=== PATIENT | male | born 1975 | race Hispanic/Latino ===

== ENCOUNTER 2024-03-03 15:08 | Inpatient (IN) | payer MEDICARE ==
[~2024-03-03] VITALS: Ht 172.7 cm; Wt 83.9 kg
[2024-03-03 16:17] LABS: BASOPHILS # (AUTO) 0.1 (0.0-0.1); BASOPHILS % 0.7 % (0.0-1.0); EOSINOPHILS # (AUTO) 0.4 (0.0-0.4); EOSINOPHILS % 3.2 % (0.0-6.0); HEMATOCRIT 48.9 % (38.2-49.6); HEMOGLOBIN 14.9 g/dL (14.0-18.0); LYMPHOCYTES % 27.7 % (18.0-39.1); MEAN CORPUSCULAR HEMOGLOBIN 27.6 pg (28-32); MEAN CORPUSCULAR HGB CONC 30.5 g/dL (31-35); MEAN CORPUSCULAR VOLUME 90.6 fL (81-99); MONOCYTES # (AUTO) 0.6 (0.2-0.8); MONOCYTES % 5.5 % (4.4-11.3); NEUTROPHILS # (AUTO) 6.8 (2.1-6.9); NEUTROPHILS % 62.4 % (38.7-80.0); PLATELET COUNT 347 x10e3/uL (140-360); RED CELL DISTRIBUTION WIDTH 14.6 % (11.7-14.4); WHITE BLOOD COUNT 10.81 x10e3/uL (4.8-10.8)
[2024-03-03 16:33] LABS: BACTERIA,URINE RARE /HPF; BILIRUBIN,URINE NEGATIVE (NEGATIVE); CLARITY,URINE CLEAR (CLEAR); COLOR,URINE YELLOW (YELLOW); EPITHELIAL CELLS,URINE RARE /LPF; GLUCOSE, URINE NEGATIVE (NEGATIVE); KETONES,URINE NEGATIVE (NEGATIVE); LEUKOCYTE ESTERASE ,URINE NEGATIVE (NEGATIVE); NITRITE,URINE NEGATIVE (NEGATIVE); PH,URINE 7 (5 - 7); PROTEIN,URINE DIPSTICK NEGATIVE (NEGATIVE); URINE UROBILINOGEN 0.2 mg/dL (0.2 - 1)
[2024-03-03] MEDS: SODIUM CHLORIDE 0.9% 1000ML 1,000 ML IV STA (16:36)
[2024-03-03] MEDS: KETOROLAC TROMETHAMINE 30 MG/ML VIAL IV STA (16:37)
[2024-03-03] MEDS: DICYCLOMINE HCL 20 MG/2 ML VIAL IM ONE (16:37)
[2024-03-03 17:13] LABS: ALBUMIN 3.7 g/dL (3.5-5.0); ALBUMIN/GLOBULIN RATIO 0.9 (0.8-2.0); ANION GAP 15.8 mmol/L (8-16); BILIRUBIN,TOTAL 0.4 mg/dL (0.2-1.2); CALCIUM 10.2 mg/dL (8.4-10.2); CREATININE, SERUM 0.83 mg/dL (0.72-1.25); POTASSIUM 3.8 mmol/L (3.5-5.1)
[2024-03-03] MEDS ORDERED: IOPAMIDOL 370 MG/ML 100 ML INFUS..BTL INJ ONE (17:20)
[2024-03-03 19:03] VITALS: PULSE 76; RESP 16; TEMP 97.8
[2024-03-03] MEDS: SODIUM CHLORIDE 0.9% 1000ML 1,000 ML IV SCH (19:52)
[2024-03-03] MEDS: METRONIDAZOLE 500MG/NS 100ML 100 ML IV SCH (19:57)
[2024-03-03 20:15] VITALS: PULSE 75; RESP 16; O2SAT 98
[2024-03-03 21:00] VITALS: BP 131/86; PULSE 73; RESP 18; TEMP 98.8; O2SAT 99
[2024-03-03] MEDS: Morphine 4mg INJECTION 4 MG/ML INJ IV PRN (22:05)
[2024-03-03 23:21] VITALS: BP 131/86; PULSE 73; RESP 18; TEMP 98.8; O2SAT 99
[2024-03-03 23:58] VITALS: BP 131/86; PULSE 73; RESP 18; TEMP 98.8; O2SAT 99
[2024-03-04] VITALS (9 sets, daily range): BP systolic 108–167; BP diastolic 67–85; PULSE 69–84; RESP 16–18; TEMP 97.6–99; O2SAT 96–100
[2024-03-04] MEDS ORDERED: METFORMIN HCL500 MG PO (00:49)
[2024-03-04 06:26] LABS: BASOPHILS # (AUTO) 0.1 (0.0-0.1); BASOPHILS % 0.9 % (0.0-1.0); EOSINOPHILS # (AUTO) 0.5 (0.0-0.4); EOSINOPHILS % 4.2 % (0.0-6.0); HEMATOCRIT 42.5 % (38.2-49.6); HEMOGLOBIN 13.4 g/dL (14.0-18.0); LYMPHOCYTES # (AUTO) 3.1 (1.0-3.2); LYMPHOCYTES % 27.8 % (18.0-39.1); MEAN CORPUSCULAR HEMOGLOBIN 27.4 pg (28-32); MEAN CORPUSCULAR HGB CONC 31.5 g/dL (31-35); MEAN CORPUSCULAR VOLUME 86.9 fL (81-99); MONOCYTES # (AUTO) 0.7 (0.2-0.8); MONOCYTES % 6.6 % (4.4-11.3); NEUTROPHILS # (AUTO) 6.6 (2.1-6.9); PLATELET COUNT 329 x10e3/uL (140-360); RED BLOOD COUNT 4.89 x10e6/uL (4.3-5.7); RED CELL DISTRIBUTION WIDTH 14.6 % (11.7-14.4); WHITE BLOOD COUNT 10.98 x10e3/uL (4.8-10.8)
[2024-03-04 06:51] LABS: ALBUMIN 3.1 g/dL (3.5-5.0); ALBUMIN/GLOBULIN RATIO 0.9 (0.8-2.0); BILIRUBIN,TOTAL 0.6 mg/dL (0.2-1.2); CALCIUM 9.6 mg/dL (8.4-10.2); CREATININE, SERUM 0.89 mg/dL (0.72-1.25); TOTAL PROTEIN 6.7 g/dL (6.5-8.1)
[2024-03-04] MEDS: ONDANSETRON HCL INJ 2MG/ML 2ML 2 MG/ML VIAL IV PRN (07:42)
[2024-03-04] MEDS: INFLUENZA VIRUS VAC SPLIT INJ 0.5 ML SYR IM SCH (07:50)
[2024-03-04] MEDS ORDERED: DEXTROSE 50% SYRINGE 50 ML IV PRN (14:45)
[2024-03-04] MEDS: INSULIN LISPRO 100 UNIT/1 ML 3ML VIAL SQ SCH (16:04)
[2024-03-04] MEDS: ACETAMINOPHEN 1000 MG/100 ML IV PRN (17:56)
[2024-03-05] VITALS (7 sets, daily range): BP systolic 109–128; BP diastolic 68–86; PULSE 63–88; RESP 16–18; TEMP 97.7–98.7; O2SAT 93–100
[2024-03-05] MEDS ORDERED: ERYTHROMYCIN 500 MG TAB PO SCH (07:15)
[2024-03-05] MEDS ORDERED: BISACODYL 10 MG SUPP PR ONE (11:00)
[2024-03-05] MEDS: CITRATE OF MAGNESIA 300ML BOTTLE PO ONE (11:40)
[2024-03-05] MEDS: NEOMYCIN SULFATE 500 MG TAB PO SCH (12:20)
[2024-03-05] MEDS: ERYTHROMYCIN 500 MG TAB PO SCH (12:20)
[2024-03-05 14:41] LABS: BASOPHILS # (AUTO) 0.1 (0.0-0.1); BASOPHILS % 0.9 % (0.0-1.0); EOSINOPHILS # (AUTO) 0.5 (0.0-0.4); EOSINOPHILS % 8.3 % (0.0-6.0); HEMATOCRIT 49.2 % (38.2-49.6); HEMOGLOBIN 14.4 g/dL (14.0-18.0); LYMPHOCYTES # (AUTO) 1.6 (1.0-3.2); LYMPHOCYTES % 24.8 % (18.0-39.1); MEAN CORPUSCULAR HEMOGLOBIN 27.3 pg (28-32); MEAN CORPUSCULAR HGB CONC 29.3 g/dL (31-35); MONOCYTES # (AUTO) 0.4 (0.2-0.8); MONOCYTES % 6.1 % (4.4-11.3); NEUTROPHILS # (AUTO) 3.8 (2.1-6.9); NEUTROPHILS % 59.3 % (38.7-80.0); PLATELET COUNT 318 x10e3/uL (140-360); RED BLOOD COUNT 5.28 x10e6/uL (4.3-5.7); RED CELL DISTRIBUTION WIDTH 14.6 % (11.7-14.4); WHITE BLOOD COUNT 6.37 x10e3/uL (4.8-10.8)
[2024-03-05 14:52] LABS: MEAN CORPUSCULAR VOLUME 93.2 fL (81-99)
[2024-03-05 14:56] LABS: ANION GAP 15.9 mmol/L (8-16); CALCIUM 10.2 mg/dL (8.4-10.2); CREATININE, SERUM 1.03 mg/dL (0.72-1.25); POTASSIUM 3.9 mmol/L (3.5-5.1)
[2024-03-05] MEDS ORDERED: ACETAMINOPHEN 325 MG TAB PO PRN (16:30)
[2024-03-05] MEDS: BISACODYL 10 MG SUPP PR ONE (20:49)
[2024-03-06] VITALS (9 sets, daily range): BP systolic 113–123; BP diastolic 74–93; PULSE 57–83; RESP 17–18; TEMP 97.5–98.3; O2SAT 97–100
[2024-03-06] MEDS ORDERED: BUPIVACAINE/EPI 0.5% 30ML SDV-MPF INJ ONE (07:08)
[2024-03-06] MEDS ORDERED: LIDOCAINE HCL 2% LOCAL INJ 5 ML SDV VIAL INJ ONE (07:08)
[2024-03-06] MEDS ORDERED: FENTANYL CITRATE/PF 100MCG/2 ML INJ ONE (07:08)
[2024-03-06] MEDS ORDERED: ROCURONIUM BROMIDE 1 ML IV ONE (07:08)
[2024-03-06] MEDS ORDERED: SUCCINYLCHOLINE CHLORIDE 20 MG/ML 10ML VIAL ONE (07:08)
[2024-03-06] MEDS ORDERED: PROPOFOL IV EMULSION 10 MG/ML 20 ML VIAL ONE (07:12)
[2024-03-06] MEDS ORDERED: HYDROMORPHONE 2MG/ML ONE (08:24)
[2024-03-06] MEDS ORDERED: SEVOFLURANE INHAL SOLN 250 ML PEN BTL ONE (08:31)
[2024-03-06] MEDS ORDERED: DEXAMETHASONE SOD PHOS INJ 4 MG/ML SDV ONE (09:03)
[2024-03-06] MEDS ORDERED: ONDANSETRON HCL INJ 2MG/ML 2ML 2 MG/ML VIAL ONE (09:03)
[2024-03-06] MEDS ORDERED: KETOROLAC TROMETHAMINE 30 MG/ML VIAL ONE (09:03)
[2024-03-06] MEDS ORDERED: METOCLOPRAMIDE HCL 10 MG/2ML VIAL ONE (09:03)
[2024-03-06] MEDS ORDERED: SUGAMMADEX SODIUM 200 MG/2 ML VIAL IV ONE (09:16)
[2024-03-06] MEDS ORDERED: KETOROLAC TROMETHAMINE 30 MG/ML VIAL IV PRN (09:30)
[2024-03-06] MEDS ORDERED: ACETAMINOPHEN 1000 MG/100 ML IV PRN (09:30)
[2024-03-06] MEDS ORDERED: NALOXONE HCL INJ 0.4 MG/ML AMP IV PRN (09:30)
[2024-03-06] MEDS ORDERED: DIPHENHYDRAMINE HCL 25 MG CAP PO PRN (09:30)
[2024-03-06] MEDS ORDERED: LACTATED RINGER S ONE (09:41)
[2024-03-06] MEDS: MORPHINE SULFATE 1 MG/ML 30ML PCA IV PRN (09:55)
[2024-03-06] MEDS: DEXTROSE 5%/LACTATED RINGERS 1,000 ML IV SCH (12:25)
[2024-03-06 19:43] LABS: BASOPHILS % 0.2 % (0.0-1.0); HEMATOCRIT 44.1 % (38.2-49.6); HEMOGLOBIN 13.8 g/dL (14.0-18.0); LYMPHOCYTES # (AUTO) 0.7 (1.0-3.2); LYMPHOCYTES % 5.6 % (18.0-39.1); MEAN CORPUSCULAR HGB CONC 31.3 g/dL (31-35); MONOCYTES # (AUTO) 0.4 (0.2-0.8); MONOCYTES % 2.9 % (4.4-11.3); NEUTROPHILS # (AUTO) 11.7 (2.1-6.9); NEUTROPHILS % 90.8 % (38.7-80.0); PLATELET COUNT 351 x10e3/uL (140-360); RED BLOOD COUNT 5.11 x10e6/uL (4.3-5.7); RED CELL DISTRIBUTION WIDTH 14.3 % (11.7-14.4)
[2024-03-06 19:51] LABS: MEAN CORPUSCULAR VOLUME 86.3 fL (81-99); WHITE BLOOD COUNT 12.92 x10e3/uL (4.8-10.8)
[2024-03-06 20:10] LABS: CALCIUM 9.8 mg/dL (8.4-10.2); CREATININE, SERUM 0.95 mg/dL (0.72-1.25)
[2024-03-06] MEDS: BUPIVACAINE LIPOSOME/PF 266 MG/20 ML IJ ONE (20:15)
[2024-03-07] VITALS (10 sets, daily range): BP systolic 95–124; BP diastolic 71–92; PULSE 60–78; RESP 18–19; TEMP 98.1–98.9; O2SAT 100
[2024-03-07 06:41] LABS: BASOPHILS % 0.1 % (0.0-1.0); EOSINOPHILS % 0.1 % (0.0-6.0); HEMATOCRIT 42.8 % (38.2-49.6); HEMOGLOBIN 13.1 g/dL (14.0-18.0); LYMPHOCYTES # (AUTO) 1.7 (1.0-3.2); LYMPHOCYTES % 10.6 % (18.0-39.1); MEAN CORPUSCULAR HEMOGLOBIN 27.8 pg (28-32); MEAN CORPUSCULAR HGB CONC 30.6 g/dL (31-35); MEAN CORPUSCULAR VOLUME 90.7 fL (81-99); MONOCYTES # (AUTO) 0.8 (0.2-0.8); MONOCYTES % 5.1 % (4.4-11.3); NEUTROPHILS # (AUTO) 13.4 (2.1-6.9); NEUTROPHILS % 83.6 % (38.7-80.0); PLATELET COUNT 321 x10e3/uL (140-360); RED BLOOD COUNT 4.72 x10e6/uL (4.3-5.7); RED CELL DISTRIBUTION WIDTH 14.2 % (11.7-14.4); WHITE BLOOD COUNT 16.02 x10e3/uL (4.8-10.8)
[2024-03-07 07:13] LABS: ANION GAP 15.9 mmol/L (8-16); CALCIUM 9.7 mg/dL (8.4-10.2); CREATININE, SERUM 0.84 mg/dL (0.72-1.25); POTASSIUM 3.9 mmol/L (3.5-5.1)
[2024-03-07] MEDS: SODIUM CHLORIDE 0.45% 1,000 ML IV SCH (15:52)
[2024-03-08] VITALS (9 sets, daily range): BP systolic 107–129; BP diastolic 73–85; PULSE 60–78; RESP 17–19; TEMP 97.8–98.5; O2SAT 98–100
[2024-03-08 06:30] LABS: HEMATOCRIT 46.2 % (38.2-49.6); HEMOGLOBIN 13.8 g/dL (14.0-18.0); MEAN CORPUSCULAR HEMOGLOBIN 27.5 pg (28-32); MEAN CORPUSCULAR HGB CONC 29.9 g/dL (31-35); MEAN CORPUSCULAR VOLUME 92.2 fL (81-99); PLATELET COUNT 320 x10e3/uL (140-360); RED BLOOD COUNT 5.01 x10e6/uL (4.3-5.7); RED CELL DISTRIBUTION WIDTH 14.7 % (11.7-14.4)
[2024-03-08 06:53] LABS: ANION GAP 14.9 mmol/L (8-16); CALCIUM 10.1 mg/dL (8.4-10.2); CREATININE, SERUM 0.9 mg/dL (0.72-1.25); POTASSIUM 3.9 mmol/L (3.5-5.1)
[2024-03-08 08:22] LABS: EOSINOPHILS % (MANUAL) 4 % (0-7); LYMPHOCYTES % (MANUAL) 25 % (19-48); MONOCYTES % (MANUAL) 5 % (3.4-9.0); NEUTROPHILS % (MANUAL) 58 % (40-74); PLATELET ESTIMATE ADEQUATE; PLATELET MORPHOLOGY COMMENT NORMAL; RBC MORPHOLOGY COMMENT NORMAL; REACTIVE LYMPHOCYTES 8
[2024-03-09 03:11] VITALS: BP 113/81; PULSE 87; RESP 18; TEMP 99.2; O2SAT 100
[2024-03-09 06:16] LABS: BASOPHILS # (AUTO) 0.1 (0.0-0.1); BASOPHILS % 0.9 % (0.0-1.0); EOSINOPHILS # (AUTO) 0.8 (0.0-0.4); EOSINOPHILS % 6.1 % (0.0-6.0); HEMATOCRIT 46.5 % (38.2-49.6); HEMOGLOBIN 13.8 g/dL (14.0-18.0); LYMPHOCYTES # (AUTO) 4.5 (1.0-3.2); LYMPHOCYTES % 34.1 % (18.0-39.1); MEAN CORPUSCULAR HEMOGLOBIN 27.4 pg (28-32); MEAN CORPUSCULAR HGB CONC 29.7 g/dL (31-35); MEAN CORPUSCULAR VOLUME 92.3 fL (81-99); MONOCYTES # (AUTO) 0.8 (0.2-0.8); MONOCYTES % 5.7 % (4.4-11.3); NEUTROPHILS % 52.6 % (38.7-80.0); PLATELET COUNT 305 x10e3/uL (140-360); RED BLOOD COUNT 5.04 x10e6/uL (4.3-5.7); RED CELL DISTRIBUTION WIDTH 14.6 % (11.7-14.4); WHITE BLOOD COUNT 13.28 x10e3/uL (4.8-10.8)
[2024-03-09 08:00] VITALS: BP_SYST 118; BP_SYST 122; BP_DIAS 85; BP_DIAS 88; PULSE 83; PULSE 97; RESP 18; RESP 19; TEMP 97.7; TEMP 98.4; O2SAT 100; O2SAT 98
[2024-03-09] MEDS: HYDROCODONE/APAP 5MG-325MG TAB PO PRN (10:03)
[2024-03-09 10:46] VITALS: BP 118/85; PULSE 83; RESP 18; TEMP 98.4; O2SAT 100
[2024-03-09 16:00] VITALS: BP 110/89; PULSE 95; RESP 19; TEMP 98.3; O2SAT 98
[2024-03-09 20:00] VITALS: BP 116/83; PULSE 81; RESP 18; TEMP 97.9; O2SAT 99
[2024-03-09 21:00] VITALS: BP 116/83; PULSE 81; RESP 18; TEMP 97.9; O2SAT 99
[2024-03-10] VITALS (8 sets, daily range): BP systolic 104–121; BP diastolic 75–86; PULSE 80–88; RESP 16–19; TEMP 97.2–98.2; O2SAT 94–98
[2024-03-10] MEDS: ONDANSETRON HCL INJ 2MG/ML 2ML 2 MG/ML VIAL IV PRN (01:26)
[2024-03-10 06:12] LABS: BASOPHILS # (AUTO) 0.1 (0.0-0.1); BASOPHILS % 0.6 % (0.0-1.0); EOSINOPHILS # (AUTO) 0.7 (0.0-0.4); EOSINOPHILS % 5.3 % (0.0-6.0); HEMATOCRIT 44.5 % (38.2-49.6); HEMOGLOBIN 14.1 g/dL (14.0-18.0); LYMPHOCYTES # (AUTO) 3.8 (1.0-3.2); LYMPHOCYTES % 29.8 % (18.0-39.1); MEAN CORPUSCULAR HEMOGLOBIN 27.2 pg (28-32); MEAN CORPUSCULAR HGB CONC 31.7 g/dL (31-35); MEAN CORPUSCULAR VOLUME 85.9 fL (81-99); MONOCYTES # (AUTO) 0.6 (0.2-0.8); MONOCYTES % 4.7 % (4.4-11.3); NEUTROPHILS # (AUTO) 7.4 (2.1-6.9); NEUTROPHILS % 58.4 % (38.7-80.0); PLATELET COUNT 320 x10e3/uL (140-360); RED BLOOD COUNT 5.18 x10e6/uL (4.3-5.7); RED CELL DISTRIBUTION WIDTH 14.8 % (11.7-14.4); WHITE BLOOD COUNT 12.67 x10e3/uL (4.8-10.8)
[2024-03-10 06:28] LABS: ANION GAP 15.5 mmol/L (8-16); CALCIUM 9.6 mg/dL (8.4-10.2); CREATININE, SERUM 0.79 mg/dL (0.72-1.25); POTASSIUM 3.5 mmol/L (3.5-5.1)
[2024-03-10] MEDS ORDERED: SODIUM CHLORIDE FLUSH 10 ML SYR INJ PRN (12:00)
[2024-03-10] MEDS: SENNOSIDES 8.6 MG TAB PO SCH (14:10)
[2024-03-10] MEDS: DOCUSATE SODIUM 100 MG CAP PO SCH (14:10)
[2024-03-11] VITALS: BP 108/73; PULSE 78; RESP 16; TEMP 97.9; O2SAT 95
[2024-03-11 05:54] VITALS: BP 110/77; PULSE 82; RESP 16; TEMP 97.9; O2SAT 95
[2024-03-11] MEDS ORDERED: HYDROCODON-ACE1 EA11 PO (06:07)
[2024-03-11 06:22] LABS: BASOPHILS # (AUTO) 0.1 (0.0-0.1); BASOPHILS % 0.9 % (0.0-1.0); EOSINOPHILS # (AUTO) 0.8 (0.0-0.4); EOSINOPHILS % 6.9 % (0.0-6.0); HEMATOCRIT 46.3 % (38.2-49.6); LYMPHOCYTES # (AUTO) 3.3 (1.0-3.2); LYMPHOCYTES % 30.1 % (18.0-39.1); MEAN CORPUSCULAR HEMOGLOBIN 27.6 pg (28-32); MEAN CORPUSCULAR HGB CONC 30.2 g/dL (31-35); MEAN CORPUSCULAR VOLUME 91.3 fL (81-99); MONOCYTES # (AUTO) 0.6 (0.2-0.8); MONOCYTES % 5.2 % (4.4-11.3); PLATELET COUNT 314 x10e3/uL (140-360); RED BLOOD COUNT 5.07 x10e6/uL (4.3-5.7); RED CELL DISTRIBUTION WIDTH 14.8 % (11.7-14.4); WHITE BLOOD COUNT 10.88 x10e3/uL (4.8-10.8)
[2024-03-11 06:46] LABS: ANION GAP 14.8 mmol/L (8-16); CALCIUM 9.4 mg/dL (8.4-10.2); CREATININE, SERUM 0.88 mg/dL (0.72-1.25); POTASSIUM 3.8 mmol/L (3.5-5.1)
[2024-03-11 08:18] VITALS: BP 123/80; PULSE 73; TEMP 97.3; O2SAT 95
[2024-03-11 09:37] VITALS: BP 123/80; PULSE 73; RESP 16; TEMP 97.3; O2SAT 95
[2024-03-11] MEDS ORDERED: Docusate Sodium PO (10:51)
[2024-03-11] MEDS ORDERED: METRONIDAZOLE500 MG PO (10:51)
[2024-03-11] MEDS ORDERED: SENOKOT8.6 MG PO (10:51)
[2024-03-11] MEDS ORDERED: ONDANSETRON ODT4 MG PO (10:51)
[2024-03-11 11:29] VITALS: BP 117/78; PULSE 83; TEMP 97.8; O2SAT 97
== END 2024-03-11 12:38 | disposition home or self-care (01) | DRG 330 ==
LOC: ER 15:14 → ERHOLD 19:07 → MED/SURG3 21:04
PROVIDERS: ADMIT Internal Medicine; ATTEND Internal Medicine
PROC: 0DTN0ZZ Resection of Sigmoid Colon, Open Approach (ICD-10-PCS; principal; 2024-03-06 07:29)
DX: K57.20 Diverticulitis of large intestine with perforation and abscess without bleeding (principal); C81.9A Hodgkin lymphoma, unspecified, in remission; N32.1 Vesicointestinal fistula; E11.9 Type 2 diabetes mellitus without complications; E78.5 Hyperlipidemia, unspecified; I10 Essential (primary) hypertension; K80.20 Calculus of gallbladder without cholecystitis without obstruction; Z88.0 Allergy status to penicillin
CPT/HCPCS: 36415; 74177; 74420; 80048; 80053; 81001; 82948; 85007; 85025; 85027; 87086; 88305; 88307; 94799; 99284; C1758; J0330; J0692; J1100; J1885; J2003; J2270; J2405; J2765; J7030; Q9967